=== PATIENT | male | born 1950 | race Caucasian/White ===

== ENCOUNTER 2022-07-13 11:42 | Emergency (ER) | payer MEDICARE ==
[~2022-07-13] VITALS: Ht 172.7 cm; Wt 69.0 kg
[2022-07-13 12:39] LABS: BASOPHILS % 0.4 % (0.0-2.0); HEMATOCRIT. 39.7 % (42.0-52.0); HEMOGLOBIN. 13.3 g/dL (14.0-18.0); LYMPHOCYTES % 26.1 % (20.0-50.0); MEAN CORPUSCULAR VOLUME 92.3 fL (80.0-94.0); MONOCYTES % 6.4 % (2.0-8.0); NEUTROPHILS % 63.1 % (40.0-76.0); PLATELET 239 x1000/uL (130-400); RED CELL DISTRIBUTION WIDTH 13.9 % (11.6-14.6)
[2022-07-13 12:44] LABS: CHLORIDE 106 mEq/L (98-107)
[2022-07-13] MEDS ORDERED: SODIUM CHLORIDE 0.9% 1,000 ML IV ONE (13:00)
[2022-07-13] MEDS ORDERED: POTASSIUM CHLORIDE 20MEQ TABLET SR PO NR (14:00)
[2022-07-13] MEDS ORDERED: CALCIUM GLUCONATE 100MG/ML 10ML VIAL IV NR (14:00)
[2022-07-13 14:06] LABS: CLARITY URINE CLEAR (CLEAR); COLOR URINE YELLOW (YELLOW); KETONES URINE TRACE (NEGATIVE); LEUKOCYTE ESTERASE URINE TRACE (NEGATIVE); NITRITE URINE NEGATIVE (NEGATIVE); OCCULT BLOOD URINE 1+ (NEGATIVE); PH URINE 5.5 (4.5-8.0); PROTEIN URINE NEGATIVE (NEGATIVE); SPECIFIC GRAVITY URINE 1.034 (1.005-1.030); UROBILINOGEN URINE 0.2 E.U./dL (0.2-1.0)
[2022-07-13] MEDS ORDERED: ONDANSETRON HCL 4MG/2ML INJ IV ONE (14:45)
[2022-07-13] MEDS ORDERED: IOHEXOL-350 100 ML BOTTLE ONE (16:25)
[2022-07-13 16:30] VITALS: BP 120/72
== END 2022-07-13 19:26 | disposition home or self-care (01) ==
LOC: ER 11:42
DX: R42 Dizziness and giddiness (principal); R00.2 Palpitations; N40.0 Benign prostatic hyperplasia without lower urinary tract symptoms
CPT/HCPCS: 36415; 71045; 71275; 80053; 81003; 83690; 83880; 84484; 85025; 85379; 85610; 93005; 96361; 96374; 96375; 99284; J0610; J2405; J7030; Q9967